=== PATIENT | male | born 1955 | race Caucasian/White ===

== ENCOUNTER 2019-12-03 09:54 | Outpatient (CLI) | payer OTHER, SELFPAY ==
[2019-12-03 12:49] LABS: Calculated LDL 109 mg/dL (<100); Cholesterol 173 mg/dL (<200); HDL Cholesterol 48 mg/dL (40-60); Triglyceride 83 mg/dL (<150)
== END 2019-12-03 10:14 ==
PROVIDERS: PCP Family Medicine; Visit Provider Family Medicine
DX: E78.5 Hyperlipidemia, unspecified (principal); C61 Malignant neoplasm of prostate
CPT/HCPCS: 36415; 80061; 84153

== ENCOUNTER 2022-11-25 01:20 | Outpatient (CLI) | payer MEDICARE, OTHER, SELFPAY ==
[2022-11-25 12:38] LABS: Calculated LDL 112 mg/dL (<100); Cholesterol 177 mg/dL (<200); Glucose 98 mg/dL (74-106); HDL Cholesterol 49 mg/dL (40-60); Triglyceride 84 mg/dL (<150)
== END 2022-11-25 01:21 | disposition home or self-care (01) ==
LOC: LOS 01:21
PROVIDERS: PCP Family Medicine; Visit Provider Family Medicine
DX: R73.9 Hyperglycemia, unspecified (principal); E78.5 Hyperlipidemia, unspecified
CPT/HCPCS: 36415; 80061; 82947